=== PATIENT | male | born 1985 | race Caucasian/White ===

== ENCOUNTER 2017-09-10 10:39 | Emergency (ER) | payer SELFPAY ==
[~2017-09-10] VITALS: Ht 182.9 cm; Wt 93.0 kg
[~2017-09-10 10:39] MED LIST: LORC10TA PO; Z.0.NO CURRENT MEDS; ZOFR4TAB3 SL
[2017-09-10 10:47] VITALS: BP 120/58; PULSE 77; RESP 16; TEMP 98.1; O2SAT 98
--- NOTE | 2017-09-10 11:16 | PD ---
HPI Chief Complaint: Eye Problems/Injury Time Seen by Provider: 10:59 Travel History International Travel<30 days: No Contact w/Intl Traveler<30days: No Traveled to known affect area: No History of Present Illness HPI 32-year-old male presents to the emergency department stating that his micro- dermal implant to his left cheek has been causing him to have nerve pain and make his eye twitch for several months. He denies any erythema or drainage. No fevers or chills. He also states that he would like medical records from an injury several years ago where he had a fracture in his face. He reports no chronic medical problems and takes no prescribed medications. He states he has had the micro-dermal implant for about 8-10 years. No exacerbating or alleviating factors. Mild severity. [facility] Past Medical History ADD: Yes Diminished Hearing: No Past Surgical History Surgical History: No Previous Surgery Social History Alcohol Use: Yes (1 PINT A DAY OF GIN OR VODKA) Tobacco Use: Yes (4 CIGS A DAY) Substance Use: Yes Allergies-Medications (Allergen,Severity, Reaction): Coded Allergies: acetaminophen (Unverified Adverse Reaction, Severe, VOMITING, 09/10/17) STS not allergic oxycodone (Unverified Adverse Reaction, Severe, VOMITING, 09/10/17) STS not allergic Reported Meds & Prescriptions Reported Meds & Active Scripts Active No Active Prescriptions or Reported Medications Review of Systems Except as stated in HPI: all other systems reviewed are Neg Physical Exam Narrative GENERAL: Well-nourished, well-developed male patient, ambulatory. Afebrile. SKIN: Focused skin assessment warm/dry. Patient is a microdermal implant to the left cheek. There is no erythema or drainage. No evidence of infection. HEAD: Normocephalic. PERRLA. EYES: No scleral icterus. No injection or drainage. NECK: Supple, trachea midline. No JVD or lymphadenopathy. CARDIOVASCULAR: Regular rate and rhythm without murmurs, gallops, or rubs. RESPIRATORY: Breath sounds equal bilaterally. No accessory muscle use. Lungs sounds are clear to auscultation. GASTROINTESTINAL: Abdomen soft, non-tender, nondistended. MUSCULOSKELETAL: No cyanosis, or edema. BACK: Nontender without obvious deformity. No CVA tenderness. Data Data Last Documented VS Vital Signs Date Time Temp Pulse Resp B/P (MAP) Pulse Ox O2 Delivery O2 Flow Rate FiO2 09/10/17 10:47 98.1 77 16 120/58 (78) 98 MDM Medical Decision Making Medical Screen Exam Complete: Yes Emergency Medical Condition: Yes Medical Record Reviewed: Yes Differential Diagnosis Soft tissue foreign body versus nerve versus medical clearance Narrative Course 32-year-old male presents to the emergency department stating that he believes that his microdermal implant causing nerve pain for several months. There is no evidence of acute infection. He also wants a copy of his previous medical records. There is no emergent condition identified on today's exam. I do not remove microdermal implants in the emergency department. He is referred to primary care physician and direct support staff member. He is return here for any acute worsening of symptoms he is instructed to go to medical records from previous records. The patient was discharged in stable condition with instructions, including return instructions and follow up instructions. Diagnosis Primary Impression: Foreign body of face Qualified Codes: S00.85XA - Superficial foreign body of other part of head, initial encounter Referrals: [facility] [employer] Patient Instructions: General Instructions Additional Instructions: Follow-up with a primary care physician. If you do not have insurance, try the [facility] in [place]. They are a clinic for the uninsured. Follow-up with a direct support staff member regarding your microdermal implant. Follow-up with medical records to get previous medical reports. Return to the emergency department for any acute worsening of symptoms. Med/Other Pt SpecificInfo: No Change to Meds Scripts No Active Prescriptions or Reported Meds Disposition: 01 DISCHARGE HOME Condition: Stable Shanae Zamora Sep 10, 2017 11:16
== END 2017-09-10 11:23 | disposition home or self-care (01) ==
LOC: PHEFT 10:39
DX: S00.85XA Superficial foreign body of other part of head, initial encounter (principal); F98.8 Other specified behavioral and emotional disorders with onset usually occurring in childhood and adolescence; F10.10 Alcohol abuse, uncomplicated; Z72.0 Tobacco use
CPT/HCPCS: 99282